=== PATIENT | male | born 1980 | race Caucasian/White ===

== ENCOUNTER 2017-11-22 22:27 | Emergency (ER) | payer OTHER ==
[2017-11-22] MEDS ORDERED: AMOXICILLIN TR/POT CLAVULANATE 500-125 MG TAB PO ONE (23:26)
[2017-11-22] MEDS ORDERED: LIDOCAINE 1% INJ-PF (10 MG/ML) 30 ML SDV INJ ONE (23:26)
[2017-11-22] MEDS ORDERED: AMOXICILLIN TRIHYDRATE 500 MG CAPSULE PO ONE (23:26)
--- NOTE | 2017-11-23 00:39 | ER Document Report ---
ED Wound - General Chief Complaint: Laceration Stated Complaint: HAND LACERATION Time Seen by Provider: 11/22/17 23:11 Notes: Patient is a 37-year-old male comes emergency department for chief complaint of laceration near his thumb on his left hand. He states he was trying to get a toy away from his dog when the dog bit him. He states his dog's vaccinations are up-to-date, patient states his tetanus is up-to-date within 5 years. He denies any other injuries. He takes no daily medications. TRAVEL OUTSIDE OF THE [place] IN LAST 30 DAYS: No - Related Data Allergies/Adverse Reactions: morphine Allergy (Verified 11/22/17 22:34) naproxen [From Naprosyn] Allergy (Verified 11/22/17 22:34) Past Medical History - General Information source: Patient - Social History Smoking Status: Never Smoker Frequency of alcohol use: None Drug Abuse: None Lives with: Family Family History: Reviewed & Not Pertinent Patient has suicidal ideation: No Patient has homicidal ideation: No - Medical History Medical History: Negative Renal/ Medical History: Denies: Hx Peritoneal Dialysis Surgical Hx: Negative - Immunizations Immunizations up to date: Yes Hx Diphtheria, Pertussis, Tetanus Vaccination: Yes Review of Systems - Review of Systems Constitutional: No symptoms reported EENT: No symptoms reported Cardiovascular: No symptoms reported Respiratory: No symptoms reported Gastrointestinal: No symptoms reported Genitourinary: No symptoms reported Male Genitourinary: No symptoms reported Musculoskeletal: See HPI Skin: See HPI Hematologic/Lymphatic: No symptoms reported Neurological/Psychological: No symptoms reported Physical Exam - Vital signs Vitals: Temp Pulse Resp BP Pulse Ox 97.7 F 64 16 117/75 98 11/22/17 22:29 11/22/17 22:29 11/22/17 22:29 11/22/17 22:29 11/22/17 22:29 Interpretation: Normal - General General appearance: Appears well, Alert In distress: None - HEENT Head: Normocephalic, Atraumatic Eyes: Normal Pupils: PERRL - Respiratory Respiratory status: No respiratory distress Chest status: Nontender Breath sounds: Normal Chest palpation: Normal - Cardiovascular Rhythm: Regular Heart sounds: Normal auscultation Murmur: No - Abdominal Inspection: Normal Distension: No distension Bowel sounds: Normal Tenderness: Nontender Organomegaly: No organomegaly - Back Back: Normal, Nontender - Extremities General upper extremity: Other - There is a jagged partial-thickness laceration over the dorsal aspect of the left hand between the first and second digits. Small abrasions as well. On exploration no evidence of tendon, large vessel, or nerve injury. Full range of motion of the thumb, fingers, hand, normal capillary refill and sensation, normal hand exam otherwise. General lower extremity: Normal inspection, Nontender, Normal strength, Normal temperature - Neurological Neuro grossly intact: Yes Cognition: Normal Orientation: AAOx4 Hector Coma Scale Eye Opening: Spontaneous Hector Coma Scale Verbal: Oriented [place] Coma Scale Motor: Obeys Commands Hector Coma Scale Total: 15 Speech: Normal Motor strength normal: LUE, RUE, LLE, RLE Sensory: Normal - Psychological Associated symptoms: Normal affect, Normal mood - Skin Skin Temperature: Warm Skin Moisture: Dry Skin Color: Normal Course - Re-evaluation Re-evalutation: Because of jagged partial-thickness wound along with bleeding, sutures had to be placed. Left a small area on 1 and where there was no closure to reduce infection risk. Placed on Augmentin. Wound was very thoroughly cleaned and irrigated before closure. Discussed wound care, follow-up, return precautions. Patient states understanding and agreement. - Vital Signs Vital signs: Temp Pulse Resp BP Pulse Ox 97.7 F 91 18 131/73 H 97 11/22/17 22:29 11/23/17 01:01 11/23/17 01:01 11/23/17 01:01 11/23/17 01:01 Procedures - Laceration/Wound Repair Left hand Wound length (cm): 2 Wound's Depth, Shape: Irregular Laceration pre-procedure: Sterile PPE Alexandra kuo applied - Surgical cleanser Anesthetic type: 1% Lidocaine Volume Anesthetic (mLs): 2 Wound explored: Clean, No foreign body removed Irrigated w/ Saline (mLs): 70 Wound Repaired With: Sutures Suture Size/Type: 4:0, Nylon Number of Sutures: 4 Layer Closure?: No Post-procedure wound care: Sterile dressing applied Post-procedure NV exam normal: Yes Complications: No Discharge - Discharge Clinical Impression: Dog bite Qualifiers: Encounter type: initial encounter Qualified Code(s): W54.0XXA - Bitten by dog, initial encounter Hand laceration Qualifiers: Encounter type: initial encounter Foreign body presence: without foreign body Laterality: left Qualified Code(s): S61.412A - Laceration without foreign body of left hand, initial encounter Condition: Stable Disposition: HOME, SELF-CARE Additional Instructions: Sutures need to come out in 7 days at a medical facility. Take the antibiotic as prescribed. Consider probiotic source to avoid diarrhea from this. Keep wound clean, clean gently with soap and water, apply topical antibiotic ointment, avoid soaking, dab dry. Return if you worsen in anyway including discolored drainage, spreading swelling or redness, fever, or any other concerning symptoms. Prescriptions: Amox Tr/Potassium Clavulanate [Augmentin 875-125 Tablet] 1 tab PO BID 7 Days tablet
[2017-11-23 01:03] VITALS: BP 131/73
== END 2017-11-23 01:03 | disposition home or self-care (01) ==
LOC: ER 22:27
DX: S61.419A Laceration without foreign body of unspecified hand, initial encounter (principal); S61.452A Open bite of left hand, initial encounter; W54.0XXA Bitten by dog, initial encounter; Y93.89 Activity, other specified; Z88.5 Allergy status to narcotic agent; Z88.8 Allergy status to other drugs, medicaments and biological substances
CPT/HCPCS: 99282; 12001; J3490